=== PATIENT | female | born 1975 | race Caucasian/White ===

== ENCOUNTER 2017-11-04 08:59 | Emergency (ER) | payer BC ==
[2017-11-04 10:12] VITALS: BP 122/86
[2017-11-04] MEDS ORDERED: Albuterol 2.5 MG/3 ML NEB.SOL* (0.083%) INH ONE (10:56)
[2017-11-04] MEDS ORDERED: Ipratropium 0.5MG/2.5ML NEB* 0.5 MG/2.5 ML NEB.SOLN INH ONE (10:56)
--- NOTE | 2017-11-04 12:27 | UC ---
Respiratory Complaint HPI - HPI Summary HPI Summary: caough with intermittant mckeon x 1 week. pt does not feel sick but has had productive cough with coughing spasms. cough is productive of sputum of varying color and consistency. mckeon comes and goes. worse with cough. mostly feels like pressure in the head. pt has h/o seasonal allergies. - History of Current Complaint Chief Complaint: UCRespiratory Stated Complaint: COUGH/CONGESTION Time Seen by Provider: 11/04/17 10:37 Hx Obtained From: Patient Hx Last Menstrual Period: 10/12/17 Onset/Duration: Gradual Onset, Lasting Days Timing: Constant Severity Initially: Moderate Severity Currently: Moderate Pain Intensity: 0 Pain Scale Used: 0-10 Numeric Character: Cough: Productive Aggravating Factors: Allergens, Exertion, Deep Breaths, Recumbent Position Alleviating Factors: Upright Position Associated Signs And Symptoms: Positive: Pleuritic Chest Pain, Sinus Discomfort. Negative: Dyspnea, Fever, Chills, Wheezing, Hemoptysis, Dizziness, Calf Pain, Calf Swelling, Nasal Congestion, Hoarseness - Allergies/Home Medications Allergies/Adverse Reactions: Allergies Allergy/AdvReac Type Severity Reaction Status Date / Time No Known Allergies Allergy Verified 09/04/17 15:55 Home Medications: Home Medications Acetaminophen [Tylenol Arthritis] 1,300 mg PO PRN 11/04/17 [History] OXcarbazepine TAB(*) [Trileptal 300 mg TAB(*)] 300 mg PO PRN 11/04/17 [History] Primidone TAB(*) [Mysoline TAB(*)] 50 mg PO BEDTIME 11/04/17 [History Confirmed 11/04/17] PMH/Surg Hx/FS Hx/Imm Hx - Additional Past Medical History Additional PMH: ms - Surgical History Surgical History: Yes Surgery Procedure, Year, and Place: , 2004, [facility];. HAS ESSURE - 1.5 T ONLY - Family History Known Family History: Positive: Other - ms - Social History Alcohol Use: None Substance Use Type: Marijuana Substance Use Comment - Amount & Last Used: daily usage Smoking Status (MU): Former Smoker Type: Cigarettes Length of Time of Smoking/Using Tobacco: 3 yrs Have You Smoked in the Last Year: No Review of Systems Constitutional: Fatigue - chronic secondary to ms, no recent change Skin: Negative Eyes: Negative ENT: Other - pnd Respiratory: Cough Cardiovascular: Chest Pain - pleuritic Gastrointestinal: Negative Musculoskeletal: Negative Neurological: Headache - intermittant, none currently Psychological: Negative Is Patient Immunocompromised?: No All Other Systems Reviewed And Are Negative: Yes Physical Exam Triage Information Reviewed: Yes Appearance: Well-Appearing, No Pain Distress, Well-Nourished Vital Signs: Initial Vital Signs Temp 98.8 F 11/04/17 10:04 Pulse 81 11/04/17 10:04 Resp 16 11/04/17 10:04 BP 122/86 11/04/17 10:04 Pulse Ox 100 11/04/17 10:04 Vital Signs Reviewed: Yes Eyes: Positive: Conjunctiva Clear, Other: - sub orbital congestion. Negative: Discharge ENT: Positive: Hearing grossly normal, Pharynx normal, Nasal congestion, TMs normal, Other - pale boggy nasal mucosa. Negative: Nasal drainage, Tonsillar swelling, Tonsillar exudate, Trismus, Muffled voice, Hoarse voice, Sinus tenderness Neck: Positive: Supple, Nontender, No Lymphadenopathy Respiratory: Positive: No respiratory distress, No accessory muscle use, Wheezing - all feilds, tight Cardiovascular: Positive: RRR, No Murmur Musculoskeletal Exam: Normal Neurological: Positive: Alert, Muscle Tone Normal Psychological: Positive: Age Appropriate Behavior Skin Exam: Normal UC Diagnostic Evaluation - Laboratory O2 Sat by Pulse Oximetry: 100 Respiratory Course/Dx - Course Course Of Treatment: wheezing resolved s/p neb tx, subjective improvement noted by pt with respect to ease of breathing - Differential Dx/Diagnosis Provider Diagnoses: bronchospasm, allergies Discharge - Sign-Out/Discharge Documenting (check all that apply): Discharge/Admit/Transfer - Discharge Plan Condition: Stable Disposition: HOME Prescriptions: Albuterol HFA INHALER* [Ventolin HFA Inhaler*] 2 puff INH Q4H PRN #1 mdi PRN Reason: Sob/Wheezing Benzonatate CAP* [Tessalon 100 MG CAP*] 100 mg PO TID #30 cap guaiFENesin ER TAB [Mucinex*] 600 mg PO BID PRN #1 box PRN Reason: Cough Patient Education Materials: Bronchospasm (ED), Allergies (ED) Referrals: Harjit Martinez MD [Primary Care Provider] - 4 Days Additional Instructions: TRY USING THE NETTI POT IN THE MORNINGS DISCUSSED. YOU MUST ALWAYS USE CLEAN WATER. REMEMBER, POSTURE IS AN IMPORTANT FACTOR IN SINUS DRAINAGE. MOVE YOUR NECK, BREATHE. - Billing Disposition and Condition Condition: STABLE Disposition: HOME
== END 2017-11-04 12:20 | disposition home or self-care (01) ==
LOC: UCCORT 08:59
DX: Z87.891 Personal history of nicotine dependence (principal); J98.01 Acute bronchospasm; T78.40XA Allergy, unspecified, initial encounter
CPT/HCPCS: 99212; G0463